=== PATIENT | female | born 1940 | race Caucasian/White ===

== ENCOUNTER 2016-11-25 10:12 | Day surgery (SDC) | payer MEDICARE, OTHER ==
[~2016-11-25] VITALS: Ht 162.6 cm; Wt 72.7 kg
--- NOTE | ~2016-11-25 | OP ---
PATIENT NAME: VINCENT BISHOP MEDICAL RECORD: [id number] :40 LOCATION:[facility] ADMISSION DATE: SURGEON: MAYITO JOHNSON DO DATE OF OPERATION: 11/25/2016 PROCEDURE: EGD with biopsies. INDICATIONS FOR PROCEDURE: Anemia and abnormal weight loss. SCOPE: Olympus video gastroscope. MEDICATIONS: Propofol 100 mg IV per anesthesia. ESTIMATED BLOOD LOSS: Minimal. COMPLICATIONS: None. FINDINGS: Informed consent was given. The patient was made comfortable with the above medication. After reaching an adequate level of sedation by slow IV push, the patient was placed on her left side. The endoscope was then advanced under direct visualization through the mouth to the second portion of the duodenum. The upper, middle, and lower thirds of the esophagus appeared normal as well as the GE junction. The endoscope was advanced beyond the GE junction into the stomach and retroflexed to view the cardia, where a small to medium size sliding hiatal hernia was present. The fundus and body of the stomach appeared normal. In the antrum and prepyloric region, there were multiple shallow and superficial NSAID-induced ulcerations present. There was no active bleeding or signs of bleeding stigmata. Random biopsies were taken to submit for histology and to rule out H. pylori. The endoscope was advanced beyond the pylorus into the duodenum where the bulb and second portion of the duodenum appeared normal. The scope was then withdrawn from the patient. The patient tolerated the procedure well and there were no complications. IMPRESSION: 1. Small to medium size sliding hiatal hernia involving the cardia. 2. Multiple superficial medication-induced gastric ulcers. PLAN AND RECOMMENDATIONS: 1. Discharge home when recovery parameters are met. 2. Follow up biopsy specimen results. 3. Continue current diet. 4. Start Protonix 40 mg daily or equivalent PPI for 8 weeks. 5. Proceed with colonoscopy as scheduled for continued searching of cause of anemia. TRANSINT:[id number] Voice Confirmation ID: [id number] DOCUMENT ID: [id number] OPERATIVE REPORT [id number] VINCENT BISHOPMAYITO DO CC: [id number] DICTATION DATE: 11/25/16 1259 [employer] REPAIRER: 11/25/16 1310 [facility] [address] [place] [address]
[2016-11-25 11:35] LABS: BASOPHILS 0.1 % (0-2); EOSINOPHILS 0.9 % (0-7); HEMATOCRIT 29.4 % (36.0-48.0); HEMOGLOBIN 8.8 g/dL (12-16); IMMATURE GRANULOCYTES 0.3 % (0-5); LYMPHOCYTES 17.5 % (15-50); MCH 23.2 pg (26.0-34.0); MCHC 29.9 g/dL (31.0-37.0); MCV 77.4 fL (80.0-100.0); MEAN PLATELET VOLUME 8.7 fL (7.4-10.4); MONOCYTES 7.9 % (2-11); NEUTROPHILS 73.3 % (40-80); PLATELET COUNT 332 10x3/uL (130-400); RDW 16.4 % (11.5-14.5); WBC 6.8 10x3/uL (4.8-10.8)
[2016-11-25 11:39] LABS: CALC OSMOLALITY 271 mosm/kg (275-300); CALCIUM 9.4 mg/dL (8.5-10.1); CARBON DIOXIDE 26.6 mmol/L (21.0-32.0); CHLORIDE - SERUM 97 mmol/L (98-107); CREATININE - SERUM 0.7 mg/dL (0.6-1.3); GLUCOSE 210 mg/dL (74-106); POTASSIUM - SERUM 3.7 mmol/L (3.5-5.1); SODIUM 132 mmol/L (136-145); UREA NITROGEN 14 mg/dL (7-18); eGFR NON AFRICAN AMERICAN 86 mL/min (90-120)
[2016-11-25] MEDS ORDERED: AMOXICILLIN500 M1 PO (11:52)
[2016-11-25] MEDS ORDERED: NORVASC5 MG PO (11:53)
[2016-11-25] MEDS ORDERED: BAYER CHEWABLE81 MG PO (11:54)
[2016-11-25] MEDS ORDERED: COREG6.25 MG (11:55)
[2016-11-25] MEDS ORDERED: VITAMIN D3400 UNI1 PO (11:55)
[2016-11-25] MEDS ORDERED: GABAPENTIN100 MG PO (11:56)
[2016-11-25] MEDS ORDERED: GLIMEPIRIDE4 MG PO (11:56)
[2016-11-25] MEDS ORDERED: HYDRALAZINE HCL10 MG PO (11:57)
[2016-11-25] MEDS ORDERED: HYZAAR 100-12.51 TAB PO (11:58)
[2016-11-25] MEDS ORDERED: GLUCOPHAGE500 MG PO (11:59)
[2016-11-25] MEDS ORDERED: PRAVACHOL20 MG (11:59)
[2016-11-25 12:12] VITALS: BP 160/82; Ht 162.6 cm; Wt 72.7 kg
[2016-11-25] MEDS ORDERED: PROTONIX40 MG PO (13:25)
[2016-11-27 14:22] LABS: ANA REFLEX - DIRECT Negative (Negative)
== END 2016-11-25 14:00 | disposition home or self-care (01) ==
LOC: D.OPS 10:12
PROVIDERS: Anesthesiology; Internal Medicine Gastroenterology
DX: D64.9 Anemia, unspecified (principal); R63.4 Abnormal weight loss; K25.9 Gastric ulcer, unspecified as acute or chronic, without hemorrhage or perforation; K44.9 Diaphragmatic hernia without obstruction or gangrene; I10 Essential (primary) hypertension; E11.9 Type 2 diabetes mellitus without complications; I48.91 Unspecified atrial fibrillation; Z01.812 Encounter for preprocedural laboratory examination

== ENCOUNTER 2016-12-02 07:19 | Day surgery (SDC) | payer MEDICARE, OTHER ==
[~2016-12-02 07:19] MED LIST: AMOXICILLIN500 M1 PO; BAYER CHEWABLE81 MG PO; COREG6.25 MG PO; GABAPENTIN100 MG PO; GLIMEPIRIDE4 MG PO; GLUCOPHAGE500 MG PO; HYDRALAZINE HCL10 MG PO; HYZAAR 100-12.51 TAB PO; NORVASC5 MG PO; PRAVACHOL20 MG PO; PROTONIX40 MG PO; VITAMIN D3400 UNI1 PO
[2016-12-02 08:12] LABS: HEMATOCRIT 29.7 % (36.0-48.0); MCH 23.3 pg (26.0-34.0); MCHC 30.3 g/dL (31.0-37.0); MCV 76.7 fL (80.0-100.0); MEAN PLATELET VOLUME 8.1 fL (7.4-10.4); RBC 3.87 10x6/uL (4.00-5.40); RDW 16.2 % (11.5-14.5); WBC 7.7 10x3/uL (4.8-10.8)
[2016-12-02 08:15] VITALS: BP 160/58; BMI 25.8
[2016-12-02 08:34] LABS: ANION GAP 14.9 mmol/L (8-16); CALCIUM 9.9 mg/dL (8.5-10.1); CARBON DIOXIDE 26.7 mmol/L (21.0-32.0); CREATININE - SERUM 0.8 mg/dL (0.6-1.3); POTASSIUM - SERUM 3.6 mmol/L (3.5-5.1)
--- NOTE | 2016-12-02 11:36 | NUR ---
PT TOLERATING FLUIDS. IV D/C'D CATH INTACT. FAMILY ASSISTING TO DRESS.
--- NOTE | 2016-12-02 11:45 | NUR ---
IV D/C'D CATH INTACT. PT UP TO BR, VOIDED AND PASSED FLATUS. D/C INSTRUCTIONS EXPLAINED TO PT. VOICED UNDERSTANDING. COPY OF HIGH FIBER DIET GIVEN.
--- NOTE | 2016-12-02 11:51 | NUR ---
D/C'D HOME VIA W/C TO PRIVATE CAR.
--- NOTE | 2016-12-03 07:47 | OP ---
PATIENT NAME: VINCENT BISHOP MEDICAL RECORD: [id number] :40 LOCATION:[facility] ADMISSION DATE: SURGEON: MAYITO JOHNSON DO DATE OF OPERATION: 12/02/2016 PROCEDURE: Colonoscopy. INDICATIONS FOR PROCEDURE: Anemia and abnormal weight loss. SCOPE: Olympus video pediatric colonoscope. MEDICATIONS: Propofol 350 mg IV per anesthesia. WITHDRAWAL TIME: 12 minutes. ESTIMATED BLOOD LOSS: None. COMPLICATIONS: None. FINDINGS: Informed consent was given. The patient was made comfortable with the above medication. After reaching an adequate level of sedation by slow IV push, the patient was placed on her left side. A digital rectal examination was performed and was normal. The endoscope was then advanced under direct visualization through the rectum to the cecum with visualization of the appendiceal orifice and ileocecal valve. The scope was slowly withdrawn and the mucosa was carefully examined. The prep quality was good. There was evidence of mild pandiverticulosis involving the entire colon. There was no evidence of diverticulitis. There were no polyps visualized on today's examination. Retroflexion was performed in the rectum with a normal appearing rectal wall. The endoscope was withdrawn from the patient. The patient tolerated the procedure well and there were no complications. IMPRESSION: Pandiverticulosis of mild severity. PLAN AND RECOMMENDATIONS: 1. Discharge home when recovery parameters are met. 2. High fiber diet. 3. Continue current medications. 4. Recommend looking for other sources of GI bleeding as the patient has had a normal upper endoscopy and now a normal lower endoscopy as well. She has also been Hemoccult negative on testing. 5. No recall colonoscopy is necessary based on the patient's age. If symptoms warrant, a colonoscopy can be repeated based on those symptoms. TRANSINT:[id number] Voice Confirmation ID: [id number] DOCUMENT ID: [id number] MAYITO JOHNSON DO at 0747 CC: [id number] DICTATION DATE: 12/02/16 1031 ELECTRICAL INTERN: 12/02/16 1139 [facility] 12/02/[address] [address]
== END 2016-12-02 11:54 | disposition home or self-care (01) ==
LOC: D.OPS 07:19
PROVIDERS: Anesthesiology
DX: K57.90 Diverticulosis of intestine, part unspecified, without perforation or abscess without bleeding (principal); D64.9 Anemia, unspecified; R63.4 Abnormal weight loss; I10 Essential (primary) hypertension; I48.91 Unspecified atrial fibrillation; E11.9 Type 2 diabetes mellitus without complications; Z01.812 Encounter for preprocedural laboratory examination